=== PATIENT | female | born 1950 | race African-American/Black ===

== ENCOUNTER 2019-10-02 19:47 | Emergency (ER) | payer MEDICARE, OTHER ==
[~2019-10-02] VITALS: Ht 157.5 cm; Wt 68.0 kg
[2019-10-02 20:15] VITALS: BP 136/61
[2019-10-02] MEDS ORDERED: BENADRYL25 MG ORAL (20:42)
[2019-10-02] MEDS ORDERED: CALAMINE LOTIO177 ML TP (20:42)
[2019-10-02] MEDS ORDERED: MEDROL DOSEPAK4 MG ORAL (20:42)
[2019-10-02 20:53] VITALS: BP 136/61
--- NOTE | 2019-10-02 21:04 | Emergency Room Report ---
History of Present Illness General Chief Complaint: General Complaint Source: Patient Present Illness HPI Patient presents with complaints of irritation to her scalp Reports that several days ago she was attacked with what she felt was a swarm of bees At that time she felt that she was stung several times Now more recently she has felt that there is increased irritation throughout her scalp she felt that she could feel some of the stingers Denies any fevers denies any visual changes denies any neck pain or photophobia denies any change in her respirations or breathing Allergies: Coded Allergies: ACETAMINOPHEN (Verified Allergy, Unknown, 03/19/11) CODEINE (Verified Allergy, Unknown, 03/19/11) HYDROCODONE (Verified Allergy, Unknown, 03/19/11) HYDROMORPHONE (Verified Allergy, Unknown, 03/19/11) MEPERIDINE (Verified Allergy, Unknown, 03/19/11) NAPROXEN (Verified Allergy, Unknown, 03/19/11) PAROXETINE (Verified Allergy, Unknown, 03/19/11) PENICILLINS (Verified Allergy, Unknown, 03/19/11) PROPOXYPHENE (Verified Allergy, Unknown, 03/19/11) TRAMADOL (Verified Allergy, Unknown, 03/19/11) COVID-19 Screening Contact w/high risk pt: No Recent Travel to affected area: No Experienced COVID-19 symptoms?: No 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 Patient History Past Medical History: see triage record Now: No Reviewed Nursing Documentation: PMH: Agreed; PSxH: Agreed Nursing Documentation-PMH Past Medical History: No History, Except For Hx Cardiac Problems: Yes - Fibromyalgia, Rheumatoid Arthritis Hx Hypertension: No Hx Pacemaker: No Hx Asthma: No Hx COPD: No Hx Diabetes: No Hx Cancer: No Hx Gastrointestinal Problems: No Hx Dialysis: No History Of Psychiatric Problem: No Hx Neurological Problems: No Hx Cerebrovascular Accident: No Hx Seizures: No Review of Systems All Other Systems: negative except mentioned in HPI Physical Exam Vital Signs Date Time Temp Pulse Resp B/P (MAP) Pulse Ox O2 Delivery O2 Flow Rate FiO2 10/02/19 19:56 97.3 95 18 136/61 (86) 97 Room Air Sp02 EP Interpretation: reviewed, normal General Appearance: well appearing, no apparent distress Head: normocephalic, atraumatic, other - There is some irritation noted to the scalp, no obvious fluctuance no obvious foreign bodies that I could see however there is a mild erythematous hue and irritated appearance, Eyes: bilateral eye PERRL, bilateral eye EOMI ENT: hearing grossly normal, normal pharynx, TMs + canals normal, uvula midline Neck: full range of motion, supple, no meningismus, no bony tend Respiratory: lungs clear, normal breath sounds, no rhonchi, no respiratory distress, no retraction, no accessory muscle use Cardiovascular #1: normal peripheral pulses, regular rate, rhythm, no edema, no gallop, no JVD, no murmur Gastrointestinal: normal bowel sounds, non tender, soft, no mass, no organomegaly, non-distended, no guarding, no hernia, no pulsatile mass, no rebound Musculoskeletal: normal inspection Neurologic: motor strength/tone normal, oriented x3, sensory intact, responsive Psychiatric: mood/affect normal Skin: other - As above Lymphatic: normal inspection, no adenopathy Medical Decision Making Diagnostic Impression: Primary Impression: insect bite Additional Impression: local reaction ER Course Patient does appear to have some evidence of irritation likely reactionary from possible stings Otherwise does not appear to be systemic patient will have initial conservative outpatient trial with medications and follow closely Last Vital Signs Date Time Temp Pulse Resp B/P (MAP) Pulse Ox O2 Delivery O2 Flow Rate FiO2 10/02/19 20:53 97.3 85 18 136/61 97 Room Air Status: unchanged Disposition: HOME, SELF-CARE Condition: Stable Scripts Calamine/Zinc Oxide (CALAMINE LOTION*) 177 Ml Suspension 1 APPLIC TP BID for 7 Days, ML 0 Refills Prov: Antoinette Sarmiento DO 10/02/19 Diphenhydramine Hcl* (BENADRYL*) 25 Mg Capsule 25 MG ORAL Q6H PRN for Itching, #20 CAP Prov: Antoinette aSrmiento DO 10/02/19 Methylprednisolone (Methylprednisolone*) 4MG Dspk 4 MG ORAL DIRECTED for 6 Days, #21 EA 0 Refills Day 1: Two tablets before breakfast, one after lunch, one after dinner, and two at bedtime. If started late in the day, take all six tablets at once or divide into two or three doses, unless otherwise directed by prescriber. Day 2: One tablet before breakfast, one after lunch, one after dinner, and two at bedtime Day 3: One tablet before breakfast, one after lunch, one after dinner, and one at bedtime Day 4: One tablet before breakfast, one after lunch, and one at bedtime Day 5: One tablet before breakfast and one at bedtime Day 6: One tablet before breakfast Prov: Antoinette Sarmiento DO 10/02/19 Referrals: [facility] Patient Instructions: Contact Dermatitis, [id number], Insect Bite, Easy-to- Read Additional Instructions: Patient is provided with the discharge instructions notified to follow up with primary doctor in the next 2-3 days otherwise return to the er with any worsening symptoms. Please note that this report is being documented using [employer] technology. This can lead to erroneous entry secondary to incorrect interpretation by the dictating instrument. Antoinette Sarmiento DO Oct 02, 2019 21:04
== END 2019-10-02 21:00 | disposition home or self-care (01) ==
LOC: EMR 20:59
DX: S00.06XA Insect bite (nonvenomous) of scalp, initial encounter (principal); W57.XXXA Bitten or stung by nonvenomous insect and other nonvenomous arthropods, initial encounter; Y92.9 Unspecified place or not applicable; M06.9 Rheumatoid arthritis, unspecified; M79.7 Fibromyalgia
CPT/HCPCS: 99282

== ENCOUNTER 2019-10-05 18:17 | Emergency (ER) | payer MEDICARE ==
[~2019-10-05] VITALS: Ht 157.5 cm; Wt 68.0 kg
[~2019-10-05 18:17] MED LIST: BENADRYL25 MG ORAL; CALAMINE LOTIO177 ML TP; MEDROL DOSEPAK4 MG ORAL
--- NOTE | 2019-10-05 18:25 | NUR ---
ED Nurse Note: Pt walked in from home c/o right leg pain with swelling since this afternoon. Pt has hx of DVT. AAOx4, verbally responsive. No SOB. ERMD at bedside.
--- NOTE | 2019-10-05 18:44 | Emergency Room Report ---
History of Present Illness General Chief Complaint: Lower Extremity Injury Source: Patient Present Illness HPI Patient presents with complaint of mid to upper right anterior thigh pain. She noticed that today when she went to the bathroom and pulled down her pants. She is taking Xarelto for DVT. She rates the pain 10/10 in her groin at this time. She has not taken any medication for pain. She is worried that she has recurrent of her clot. She denies any shortness of breath but felt strange in her chest on the way in to the emergency department. She denies any hemoptysis. There is no increased edema of her lower leg. She denies any trauma. The patient was admitted in 2010 for dyspnea and a pulmonary embolism to this hospital. Records are not available. She takes Xarelto and has not missed any doses. The patient states she is has multiple allergies to oral pain medication. She states she does tolerate Tylenol without difficulty. In addition she says that she balances her pain by taking gabapentin and Soma. 3 days ago the patient was seen here for insect bite to her scalp. She was attacked by a swarm of bees. She was treated with prednisone and the reaction was felt to be localized. She is not complaining about this at this time. No fevers, chills, sore throat, chest pain, palpitations, nausea, vomiting, diarrhea, dysuria, abdominal pain, shortness of breath, visual changes, dizziness, headache. Allergies: Coded Allergies: ACETAMINOPHEN (Verified Allergy, Unknown, 03/19/11) CODEINE (Verified Allergy, Unknown, 03/19/11) HYDROCODONE (Verified Allergy, Unknown, 03/19/11) HYDROMORPHONE (Verified Allergy, Unknown, 03/19/11) MEPERIDINE (Verified Allergy, Unknown, 03/19/11) NAPROXEN (Verified Allergy, Unknown, 03/19/11) PAROXETINE (Verified Allergy, Unknown, 03/19/11) PENICILLINS (Verified Allergy, Unknown, 03/19/11) PROPOXYPHENE (Verified Allergy, Unknown, 03/19/11) TRAMADOL (Verified Allergy, Unknown, 03/19/11) COVID-19 Screening Contact w/high risk pt: No Recent Travel to affected area: No Experienced COVID-19 symptoms?: No 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 Patient History Past Medical History: see triage record Social History: Denies: smoking Social History Narrative Drove herself from home Reviewed Nursing Documentation: PMH: Agreed; PSxH: Agreed Nursing Documentation-PMH Past Medical History: No History, Except For Hx Cardiac Problems: Yes - Fibromyalgia, Rheumatoid Arthritis Hx Hypertension: No Hx Pacemaker: No Hx Asthma: No Hx COPD: No Hx Diabetes: No Hx Cancer: No Hx Gastrointestinal Problems: No Hx Dialysis: No Hx Neurological Problems: No Hx Cerebrovascular Accident: No Hx Seizures: No Review of Systems All Other Systems: negative except mentioned in HPI Physical Exam Vital Signs Date Time Temp Pulse Resp B/P (MAP) Pulse Ox O2 Delivery O2 Flow Rate FiO2 10/05/19 18:21 98.4 87 20 136/76 (96) 99 Room Air Sp02 EP Interpretation: reviewed, normal General Appearance: well appearing, no apparent distress, GCS 15 Head: normocephalic Eyes: bilateral eye normal inspection, bilateral eye PERRL, bilateral eye EOMI ENT: moist mucus membranes Neck: supple Respiratory: lungs clear, normal breath sounds Cardiovascular #1: regular rate, rhythm Cardiovascular #2: 2+ radial (R), 2+ dorsalis pedis (R) Gastrointestinal: normal inspection, normal bowel sounds, non tender, no mass, non-distended Musculoskeletal: back normal, normal range of motion, gait/station normal Neurologic: alert, oriented x3, grossly normal Psychiatric: depressed affect Skin: warm/dry, other - Ecchymoses or telangiectasias both medial and lateral side of the leg with possible either superficial phlebitis or hematoma in the lateral thigh Medical Decision Making Diagnostic Impression: Primary Impression: Superficial phlebitis Additional Impressions: Hematoma Venous disease ER Course Patient presents with question of DVT in her right leg with red spots that is painful in her thigh. Differential includes cellulitis, DVT, superficial phlebitis amongst others. The fact she is on Xarelto makes DVT less likely at this time. She is fairly adamant that there was no trauma. Patient will be evaluated with labs EKG chest x-ray and noninvasive vascular study of the right leg. Initially patient will be treated with Tylenol. Cardiac monitoring is been ordered. Normal white count with mild anemia. PT PTT and INR normal which is expected on Xarelto. CMP normal. Ultrasound negative for DVT. Patient states pain is improved after treatment. Discussed results with patient. Discussed treatment plan with patient. Discussed differential with patient. Advised patient that she was being observed as an outpatient and it was important for her to follow-up with her own doctor. Patient stable for outpatient observation and treatment. Laboratory Tests Test 10/05/19 19:15 10/05/19 19:21 Urine Color Pale yellow Urine Appearance Clear Urine pH 6 (4.5-8.0) Urine Specific [place] 1.010 (1.005-1.035) Urine Protein Negative (NEGATIVE) Urine Glucose (UA) Negative (NEGATIVE) Urine Ketones Negative (NEGATIVE) Urine Blood Negative (NEGATIVE) Urine Nitrite Negative (NEGATIVE) Urine Bilirubin Negative (NEGATIVE) Urine Urobilinogen Normal MG/DL (0.0-1.0) Urine Leukocyte Esterase Negative (NEGATIVE) White Blood Count 7.4 K/UL (4.8-10.8) Red Blood Count 3.83 M/UL (4.20-5.40) L Hemoglobin 11.5 G/DL (12.0-16.0) L Hematocrit 36.5 % (37.0-47.0) L Mean Corpuscular Volume 95 FL (80-99) Mean Corpuscular Hemoglobin 30.1 PG (27.0-31.0) Mean Corpuscular Hemoglobin Concent 31.6 G/DL (32.0-36.0) L Red Cell Distribution Width 12.6 % (11.6-14.8) Platelet Count 264 K/UL (150-450) Mean Platelet Volume 6.7 FL (6.5-10.1) Neutrophils (%) (Auto) 77.4 % (45.0-75.0) H Lymphocytes (%) (Auto) 17.3 % (20.0-45.0) L Monocytes (%) (Auto) 4.7 % (1.0-10.0) Eosinophils (%) (Auto) 0.1 % (0.0-3.0) Basophils (%) (Auto) 0.5 % (0.0-2.0) Prothrombin Time 11.2 SEC (9.30-11.50) Prothrombin Time INR 1.0 (0.9-1.1) Activated Partial Thromboplast Time 26 SEC (23-33) Sodium Level 136 MMOL/L (136-145) Potassium Level 4.1 MMOL/L (3.5-5.1) Chloride Level 101 MMOL/L (98-107) Carbon Dioxide Level 26 MMOL/L (21-32) Anion Gap 9 mmol/L (5-15) Blood Urea Nitrogen 18 mg/dL (7-18) Creatinine 1.0 MG/DL (0.55-1.30) Estimated Glomerular Filtration Rate > 60 mL/min (>60) Glucose Level 99 MG/DL (74-106) Calcium Level 9.3 MG/DL (8.5-10.1) Total Bilirubin 0.3 MG/DL (0.2-1.0) Aspartate Amino Transferase (AST) 28 U/L (15-37) Alanine Aminotransferase (ALT) 16 U/L (12-78) Alkaline Phosphatase 91 U/L (46-116) Troponin I 0.000 ng/mL (0.000-0.056) Pro-B-Type Natriuretic Peptide 109 pg/mL (0-125) Total Protein 7.7 G/DL (6.4-8.2) Albumin 3.7 G/DL (3.4-5.0) Globulin 4.0 g/dL Albumin/Globulin Ratio 0.9 (1.0-2.7) L EKG Diagnostic Results Rate: normal Rhythm: NSR ST Segments: no acute changes Rhythm Strip Diag. Results EP Interpretation: yes Rhythm: NSR, no PVC's, no ectopy CT/MRI/US Diagnostic Results CT/MRI/US Diagnostic Results : Imaging Test Ordered: Right leg venous Doppler Impression No DVT Last Vital Signs Date Time Temp Pulse Resp B/P (MAP) Pulse Ox O2 Delivery O2 Flow Rate FiO2 10/05/19 20:07 98.5 20 136/76 99 Room Air 10/05/19 18:21 87 Status: improved Disposition: HOME, SELF-CARE Condition: Improved Sekou Dean MD Oct 05, 2019 18:44
--- NOTE | 2019-10-05 18:45 | NUR ---
ED Nurse Note: US at bedside.
--- NOTE | 2019-10-05 19:07 | Diagnostic Imaging Report ---
EXAM: XR Chest, 1 View CLINICAL HISTORY: SWELL TECHNIQUE: Frontal view of the chest. COMPARISON: 03/18/11 FINDINGS: Lungs: Bilateral pulmonary hyperinflation. No consolidation. Pleural space: No significant abnormality. No pneumothorax. Heart: No significant abnormality. No cardiomegaly. Mediastinum: No significant abnormality. Bones/joints: No acute osseous abnormality. IMPRESSION: No acute cardiopulmonary process.
--- NOTE | 2019-10-05 19:18 | Diagnostic Imaging Report ---
EXAM: US Duplex Right Lower Extremity Veins CLINICAL HISTORY: DVT TECHNIQUE: Real-time duplex ultrasound scan of the right lower extremity veins integrating B-mode two-dimensional vascular structure, Doppler spectral analysis, color flow Doppler imaging and compression. COMPARISON: No relevant prior studies available. FINDINGS: Deep veins: Unremarkable as visualized. Normal compression and normal response to augmentation. Superficial veins: Unremarkable as visualized. Soft tissues: No acute findings. IMPRESSION: No right lower extremity DVT.
[2019-10-05 19:34] LABS: APPEARANCE,URINE CLEAR; BILIRUBIN, URINE NEGATIVE (NEGATIVE); COLOR,URINE PALE YELLOW; GLUCOSE, URINE (UA) NEGATIVE (NEGATIVE); KETONES,URINE NEGATIVE (NEGATIVE); LEUKOCYTE ESTERASE ,URINE NEGATIVE (NEGATIVE); NITRITE,URINE NEGATIVE (NEGATIVE); PH,URINE 6 (4.5-8.0); PROTEIN,URINE NEGATIVE (NEGATIVE); UROBILINOGEN,URINE NORMAL MG/DL (0.0-1.0)
[2019-10-05 19:38] LABS: BASOPHILS % (AUTO) 0.5 % (0.0-2.0); EOSINOPHILS % (AUTO) 0.1 % (0.0-3.0); HEMATOCRIT 36.5 % (37.0-47.0); HEMOGLOBIN 11.5 G/DL (12.0-16.0); LYMPHOCYTES % (AUTO) 17.3 % (20.0-45.0); MEAN CORPUSCULAR VOLUME 95 FL (80-99); MONOCYTES % (AUTO) 4.7 % (1.0-10.0); NEUTROPHILS % (AUTO) 77.4 % (45.0-75.0); PLATELET COUNT 264 K/UL (150-450); RED BLOOD COUNT 3.83 M/UL (4.20-5.40); RED CELL DISTRIBUTION WIDTH 12.6 % (11.6-14.8); WHITE BLOOD COUNT 7.4 K/UL (4.8-10.8)
[2019-10-05 19:45] LABS: ANION GAP 9 mmol/L (5-15); BLOOD UREA NITROGEN 18 mg/dL (7-18); CALCIUM 9.3 MG/DL (8.5-10.1); CARBON DIOXIDE 26 MMOL/L (21-32); CHLORIDE 101 MMOL/L (98-107); POTASSIUM 4.1 MMOL/L (3.5-5.1); SODIUM 136 MMOL/L (136-145)
[2019-10-05 19:56] LABS: ALANINE AMINOTRANSFERASE 16 U/L (12-78); ALBUMIN 3.7 G/DL (3.4-5.0); ALBUMIN/GLOBULIN RATIO 0.9 (1.0-2.7); ALKALINE PHOSPHATASE 91 U/L (46-116); ASPARTATE AMINO TRANSFERASE 28 U/L (15-37); BILIRUBIN,TOTAL 0.3 MG/DL (0.2-1.0)
--- NOTE | 2019-10-05 20:06 | NUR ---
ER DISCHARGE NOTE: Patient is cleared to be discharged per ERMD, pt is aox4, on room air, with stable vital signs. pt was given dc and prescription instructions, pt was able to verbalize understanding, pt id band and iv site removed without complications. pt is able to ambulate with steady gait using cane. pt took all belongings.
[2019-10-05 20:07] VITALS: BP 136/76
== END 2019-10-05 20:06 | disposition home or self-care (01) ==
LOC: EMR 18:35
DX: I80.9 Phlebitis and thrombophlebitis of unspecified site (principal); Z79.01 Long term (current) use of anticoagulants; Z86.711 Personal history of pulmonary embolism; Z88.6 Allergy status to analgesic agent; Z88.8 Allergy status to other drugs, medicaments and biological substances; Z88.0 Allergy status to penicillin; M06.9 Rheumatoid arthritis, unspecified; M79.7 Fibromyalgia; I87.9 Disorder of vein, unspecified; S70.12XA Contusion of left thigh, initial encounter; D64.9 Anemia, unspecified; Z86.718 Personal history of other venous thrombosis and embolism
CPT/HCPCS: 36415; 71045; 80053; 81003; 83880; 84484; 85025; 85610; 85730; 93005; 93971; 99284

== ENCOUNTER 2019-12-27 09:53 | Emergency (ER) | payer MEDICARE ==
[~2019-12-27] VITALS: Ht 157.5 cm; Wt 68.0 kg
[2019-12-27 10:10] VITALS: BP 109/78
[2019-12-27] MEDS ORDERED: BENADRYL CRE1 APPLIC TOPIC (10:21)
[2019-12-27] MEDS ORDERED: MEDROL DOSEPAK4 MG ORAL (10:21)
--- NOTE | 2019-12-27 10:21 | Emergency Room Report ---
History of Present Illness General Chief Complaint: Skin Rash/Abscess Source: Patient Present Illness HPI 69-year-old female history of bites to the forehead, reports recurrent bites x1 day, she endorses itching, she states alleviating factors appear to be steroids, she said she had a Medrol Dosepak in April and it helped, no aggravating factors severity is mild, constant characterization is itchy, patient presents for evaluation and treatment no other complaints Allergies: Coded Allergies: CODEINE (Verified Allergy, Unknown, 03/19/11) HYDROCODONE (Verified Allergy, Unknown, 03/19/11) HYDROMORPHONE (Verified Allergy, Unknown, 03/19/11) MEPERIDINE (Verified Allergy, Unknown, 03/19/11) NAPROXEN (Verified Allergy, Unknown, 03/19/11) PAROXETINE (Verified Allergy, Unknown, 03/19/11) PENICILLINS (Verified Allergy, Unknown, 03/19/11) PROPOXYPHENE (Verified Allergy, Unknown, 03/19/11) TRAMADOL (Verified Allergy, Unknown, 03/19/11) COVID-19 Screening Contact w/high risk pt: No Recent Travel to affected area: No Experienced COVID-19 symptoms?: No 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 Patient History Past Medical History: see triage record Last Menstrual Period: na Reviewed Nursing Documentation: PMH: Agreed; PSxH: Agreed Nursing Documentation-PMH Past Medical History: No History, Except For Hx Cardiac Problems: Yes - Fibromyalgia, Rheumatoid Arthritis Hx Hypertension: No Hx Pacemaker: No Hx Asthma: No Hx COPD: No Hx Diabetes: No Hx Cancer: No Hx Gastrointestinal Problems: No Hx Dialysis: No Hx Neurological Problems: No Hx Cerebrovascular Accident: No Hx Seizures: No Review of Systems All Other Systems: negative except mentioned in HPI Physical Exam Vital Signs Date Time Temp Pulse Resp B/P (MAP) Pulse Ox O2 Delivery O2 Flow Rate FiO2 12/27/19 10:04 97.7 94 18 109/78 (88) 97 Room Air General Appearance: well appearing, no apparent distress Head: normocephalic, atraumatic ENT: hearing grossly normal, normal voice Neck: full range of motion, supple Respiratory: no respiratory distress, speaking full sentences Neurologic: alert, normal gait Psychiatric: mood/affect normal Skin: rash - Small punctate bite garcia less than a millimeter left forehead Medical Decision Making Diagnostic Impression: Primary Impression: Rash and other nonspecific skin eruption ER Course [age]-year-old female presents with possible bite garcia, will start patient on the Medrol dose pack per her request Disposition home with return precautions follow-up with PCP Last Vital Signs Date Time Temp Pulse Resp B/P (MAP) Pulse Ox O2 Delivery O2 Flow Rate FiO2 12/27/19 10:04 97.7 94 18 109/78 (88) 97 Room Air Disposition: HOME, SELF-CARE Condition: Stable Scripts Diphenhydramine HCl/Zinc Acet (Benadryl Itch Stopping Crm) 28.3 Gm Cream..g. 1 APPLIC TOPIC DAILY PRN for Itching, #28.3 APPLIC Prov: Ryne Plunkett MD 12/27/19 Methylprednisolone (Methylprednisolone*) 4MG Dspk 4 MG ORAL DIRECTED for 6 Days, #21 EA 0 Refills Day 1: Two tablets before breakfast, one after lunch, one after dinner, and two at bedtime. If started late in the day, take all six tablets at once or divide into two or three doses, unless otherwise directed by prescriber. Day 2: One tablet before breakfast, one after lunch, one after dinner, and two at bedtime Day 3: One tablet before breakfast, one after lunch, one after dinner, and one at bedtime Day 4: One tablet before breakfast, one after lunch, and one at bedtime Day 5: One tablet before breakfast and one at bedtime Day 6: One tablet before breakfast Prov: Ryne Plunkett MD 12/27/19 Referrals: [facility] Patient Instructions: Rash Additional Instructions: The patient was provided with discharge instructions, notified to follow-up with a primary care doctor and or specialist in the next 24-48 hours, and to return to the ED if they have worsening of their symptoms. Please note that this report is being documented using [employer] technology. This can lead to erroneous entry secondary to incorrect interpretation by the dictating instrument. Ryne Plunkett MD Dec 27, 2019 10:21
[2019-12-27 10:25] VITALS: BP 109/78
== END 2019-12-27 10:25 | disposition home or self-care (01) ==
LOC: EMR 10:20
DX: R21 Rash and other nonspecific skin eruption (principal); M06.9 Rheumatoid arthritis, unspecified; M79.7 Fibromyalgia; Z88.5 Allergy status to narcotic agent; Z88.1 Allergy status to other antibiotic agents; Z88.8 Allergy status to other drugs, medicaments and biological substances
CPT/HCPCS: 99282

== ENCOUNTER 2020-02-10 10:07 | Emergency (ER) | payer MEDICARE ==
[~2020-02-10] VITALS: Ht 157.5 cm; Wt 68.0 kg
[~2020-02-10 10:07] MED LIST changes: +BENADRYL CRE1 APPLIC TOPIC
[2020-02-10 10:14] VITALS: BP 114/73
--- NOTE | 2020-02-10 10:24 | NUR ---
ED Nurse Note: Patient from home and walked in due to generalized body rashes and urticaria x 1 week. No respiratory distress. AAO x4 and ambulatory.
[2020-02-10] MEDS ORDERED: PERMETHRIN60 GM TOPIC (10:25)
[2020-02-10] MEDS ORDERED: MEDROL DOSEPAK4 MG ORAL (10:25)
[2020-02-10 10:30] VITALS: BP 125/76
--- NOTE | 2020-02-10 10:30 | Emergency Room Report ---
History of Present Illness General Chief Complaint: Skin Rash/Abscess Source: Patient Present Illness HPI Patient presents emergency department today complaining of rash and itching throughout the body. Patient has been to our hospital multiple times for different types of complaints before. Last time she was here she requested Medrol Dosepak. She states that this seems to help her with her symptoms. She is requesting again Medrol Dosepak. She also thinks that she might have scabies or mites throughout her body would like appointment for that. She denies any fever chest pain shortness of breath. No other complaints were noted. Symptoms noted to be mild to moderate over the last couple of days progressively worse. Denies any other sick contacts or travel to any high risk places. No other modifying factors. No other associated signs and symptoms. No other complaints were noted. Allergies: Coded Allergies: CODEINE (Verified Allergy, Unknown, 03/19/11) HYDROCODONE (Verified Allergy, Unknown, 03/19/11) HYDROMORPHONE (Verified Allergy, Unknown, 03/19/11) MEPERIDINE (Verified Allergy, Unknown, 03/19/11) NAPROXEN (Verified Allergy, Unknown, 03/19/11) PAROXETINE (Verified Allergy, Unknown, 03/19/11) PENICILLINS (Verified Allergy, Unknown, 03/19/11) PROPOXYPHENE (Verified Allergy, Unknown, 03/19/11) TRAMADOL (Verified Allergy, Unknown, 03/19/11) COVID-19 Screening Contact w/high risk pt: No Recent Travel to affected area: No Experienced COVID-19 symptoms?: No COVID-19 Testing performed [employer]: Yes COVID-19 Screening: Negative COVID-19 COVID-19 Testing Source: [employer]. Patient History Past Medical History: other - Fibromyalgia, rheumatoid arthritis. Past Surgical History: none Social History: Denies: smoking, alcohol use, drug use Reviewed Nursing Documentation: PMH: Agreed; PSxH: Agreed Nursing Documentation-PMH Past Medical History: No History, Except For Hx Cardiac Problems: Yes - Fibromyalgia, Rheumatoid Arthritis Hx Hypertension: No Hx Pacemaker: No Hx Asthma: No Hx COPD: No Hx Diabetes: No Hx Cancer: No Hx Gastrointestinal Problems: No Hx Dialysis: No Hx Neurological Problems: No Hx Cerebrovascular Accident: No Hx Seizures: No Review of Systems All Other Systems: negative except mentioned in HPI Physical Exam Vital Signs Date Time Temp Pulse Resp B/P (MAP) Pulse Ox O2 Delivery O2 Flow Rate FiO2 02/10/20 10:14 98.1 98 16 114/73 (87) 98 Room Air Sp02 EP Interpretation: reviewed, normal General Appearance: normal inspection, well appearing, no apparent distress, alert Head: atraumatic Eyes: bilateral eye normal inspection ENT: normal ENT inspection, hearing grossly normal, normal voice Neck: normal inspection, full range of motion, supple, no bony tend Respiratory: normal inspection, lungs clear, normal breath sounds, no respiratory distress, no retraction, no wheezing Cardiovascular #1: regular rate, rhythm, no edema Gastrointestinal: normal inspection, normal bowel sounds, non tender, soft, no guarding, no hernia Genitourinary: no CVA tenderness Musculoskeletal: normal inspection, back normal, normal range of motion Neurologic: alert, responsive, speech normal, normal inspection Psychiatric: normal inspection, judgement/insight normal, mood/affect normal Medical Decision Making Diagnostic Impression: Primary Impression: Rash and other nonspecific skin eruption ER Course Patient presents emergency department today complaint of rash on her body and itching. Her exam is fairly normal. Differential diagnosis include pleuritis, allergic reaction, eczema, scabies just name a few. Given patient presentation this can be consistent with scabies although other allergic reactions are possible. Will provide patient prescription for Medrol Dosepak and permethrin cream. Recommend outpatient follow-up. Patient is advised to follow up with primary doctor in 2-3 days and return the emergency room for any worsening symptoms and as needed. Last Vital Signs Date Time Temp Pulse Resp B/P (MAP) Pulse Ox O2 Delivery O2 Flow Rate FiO2 02/10/20 10:14 98.1 98 16 114/73 (87) 98 Room Air Status: improved Disposition: HOME, SELF-CARE Condition: Stable Scripts Methylprednisolone (Methylprednisolone*) 4MG Dspk 4 MG ORAL DIRECTED for 6 Days, #21 EA 0 Refills Day 1: Two tablets before breakfast, one after lunch, one after dinner, and two at bedtime. If started late in the day, take all six tablets at once or divide into two or three doses, unless otherwise directed by prescriber. Day 2: One tablet before breakfast, one after lunch, one after dinner, and two at bedtime Day 3: One tablet before breakfast, one after lunch, one after dinner, and one at bedtime Day 4: One tablet before breakfast, one after lunch, and one at bedtime Day 5: One tablet before breakfast and one at bedtime Day 6: One tablet before breakfast Prov: Kyle Pryor MD 02/10/20 Permethrin* (ELIMITE*) 60 Gm Cream..g. 1 APPLIC TOPIC ONCE, #60 GM 0 Refills Apply cream from head to toe; leave on for 8-14 hours before washing off with water; may reapply in 1 week if live mites appear. Prov: Kyle Pryor MD 02/10/20 Patient Instructions: Pruritus Kyle Pryor MD Feb 10, 2020 10:30
--- NOTE | 2020-02-10 10:30 | NUR ---
ER DISCHARGE NOTE: Patient is cleared to be discharged per ERMD, pt is aox4, on room air, with stable vital signs. pt was given dc and prescription instructions, pt was able to verbalize understanding, pt id band removed. pt is able to ambulate with steady gait. pt took all belongings.
== END 2020-02-10 10:47 | disposition home or self-care (01) ==
LOC: EMR 10:35
DX: R21 Rash and other nonspecific skin eruption (principal); M06.9 Rheumatoid arthritis, unspecified; M79.7 Fibromyalgia; Z88.6 Allergy status to analgesic agent; Z88.0 Allergy status to penicillin; Z88.8 Allergy status to other drugs, medicaments and biological substances
CPT/HCPCS: 99282